=== PATIENT | male | born 1995 | race Two or more races ===

== ENCOUNTER 2022-09-09 00:54 | Emergency (ER) | payer OTHER ==
[~2022-09-09] VITALS: Ht 180.3 cm; Wt 75.0 kg
[2022-09-09 01:11] VITALS: BP 126/82
[2022-09-09] MEDS ORDERED: TETANUS-DIPTH-ACEL PERTUSSIS 0.5ML SYR Tdap IM ONE (01:45)
[2022-09-09] MEDS ORDERED: AMOX-277 PO (01:47)
== END 2022-09-09 02:08 | disposition home or self-care (01) ==
LOC: ER 00:54
DX: S61.451A Open bite of right hand, initial encounter (principal); Z79.2 Long term (current) use of antibiotics; W50.3XXA Accidental bite by another person, initial encounter; Y93.89 Activity, other specified; Y92.89 Other specified places as the place of occurrence of the external cause; Y99.8 Other external cause status
CPT/HCPCS: 90471; 90715